=== PATIENT | male | born 1960 | race Caucasian/White ===

== ENCOUNTER 2018-06-29 13:22 | Emergency (ER) | payer OTHER ==
[2018-06-29 13:30] VITALS: BMI 34.7
[2018-06-29 14:40] LABS: BASO % 0.4 % (0-2.0); EOS % 2.2 % (0-4.5); LYMPH % 11.9 % (8-40); MCH 32.2 pg (25.7-33.7); MCHC 35.1 g/dl (32.0-35.9); MEAN CELL VOLUME 91.9 fl (80-96); MEAN PLT VOLUME 7.2 fl (7.5-11.1); MONO % 8.5 % (3.8-10.2); PLATELET COUNT 239 K/MM3 (134-434); RBC 4.35 M/mm3 (4.00-5.60); RDW 13.8 % (11.9-15.9); WHITE BLOOD COUNT 10.4 K/mm3 (4.0-10.0)
[2018-06-29 14:42] LABS: URINE APPEARANCE CLEAR; URINE BILIRUBIN NEGATIVE (<2.0 mg/dL); URINE COLOR LTYELLOW; URINE GLUCOSE (UA) NEGATIVE (NEGATIVE); URINE KETONE NEGATIVE (NEGATIVE); URINE LEUK ESTERASE NEGATIVE (NEGATIVE); URINE NITRITE NEGATIVE (NEGATIVE); URINE PROTEIN NEGATIVE (NEGATIVE); URINE UROBILINOGEN NEGATIVE mg/dL (0.2-1.0)
[2018-06-29 15:04] LABS: ALK PHOS 117 U/L (45-117); ANION GAP 7 MMOL/L (8-16); BILIRUBIN,TOTAL 0.5 mg/dL (0.2-1); BLOOD UREA NITROGEN 12 mg/dL (7-18); CALCIUM 8.4 mg/dL (8.5-10.1); CHLORIDE 106 mmol/L (98-107); CO2 24 mmol/L (21-32); CREATININE 0.8 mg/dL (0.55-1.3); GLUCOSE,RANDOM 101 mg/dL (74-106); SGOT/AST 10 U/L (15-37); SGPT/ALT 29 U/L (13-61); SODIUM 137 mmol/L (136-145); TOT PROT 7.2 g/dl (6.4-8.2)
--- NOTE | 2018-06-29 15:12 | PDOC ---
History of Present Illness - General Chief Complaint: Pain, Acute Stated Complaint: ABDOMINAL PAIN Time Seen by Provider: 06/29/18 13:42 History Source: Patient Exam Limitations: No Limitations - History of Present Illness Travel History: No Initial Comments: 06/29/18 15:02 57-year-old male presents to ED with worsening lower abdominal pressure and cramping since early this week. Patient states went to his primary care doctor had his urine checked which was negative and was prescribed Flomax for likely prostate etiology. patient states has had an elevated PSA in the past but was currently on no medication or followed by a urologist. Patient states has had no fever, chills, headache, abdominal distention, hematuria, or back pain. 06/29/18 15:04 Timing/Duration: reports: getting worse Quality: reports: mild, fullness, sharpness Abdominal Pain Onset Location: reports: suprapubic (mid) Pain Radiation: reports: no radiation Aggravating Factors: improves with: None Alleviating Factors: improves with: None Past History - Travel Traveled outside of the country in the last 30 days: No - Past Medical History Allergies/Adverse Reactions: Allergies Allergy/AdvReac Type Severity Reaction Status Date / Time No Known Allergies Allergy Verified 06/29/18 13:25 Home Medications: Ambulatory Orders Amlodipine Besylate/Benazepril [Lotrel 5-10 mg Capsule] 1 each PO DAILY Multivitamins [Multivit ([facility] Formulary)] 1 tab PO DAILY 12/17/14 Cholecalciferol (Vitamin D3) [Vitamin D3 -] 2,000 unit PO DAILY 06/29/18 Dasatinib [Sprycel] 100 mg PO ASDIR 06/29/18 Tamsulosin HCl [Flomax] 0.4 mg PO DAILY 06/29/18 Anemia: No Asthma: No Cancer: Yes (CML) Cardiac Disorders: No CVA: No COPD: Yes (SLEEP APNEA) CHF: No Dementia: No GI Disorders: (COLON POLYPS) Disorders: Yes (enlarged prostate) HTN: Yes Seizures: No Thyroid Disease: No - Surgical History Appendectomy: Yes Cardiac Surgery: No Cholecystectomy: No Lung Surgery: No - Immunization History Immunization Up to Date: Yes - Suicide/Smoking/Psychosocial Hx Smoking History: Unknown if ever smoked Have you smoked in the past 12 months: Yes Number of Cigarettes Smoked Daily: 20 'Breaking Loose' booklet given: 12/18/14 Hx Alcohol Use: No Drug/Substance Use Hx: No Substance Use Type: None Hx Substance Use Treatment: No Patient Lives Alone: No Lives with/in: spouse/SO Review of Systems - Review of Systems Able to Perform ROS?: Yes Constitutional: No: Symptoms Reported HEENTM: No: Symptoms Reported Respiratory: No: Symptoms reported Cardiac (ROS): No: Symptoms Reported ABD/GI: Yes: Abdominal cramping : Yes: Frequency, Urgency. No: Discharge, Incontinence, Testicular Swelling, Testicular Pain Musculoskeletal: No: Symptoms Reported Integumentary: No: Symptoms Reported Neurological: No: Symptoms reported Endocrine: No: Symptoms Reported Hematologic/Lymphatic: No: Symptoms Reported *Physical Exam - Vital Signs Last Vital Signs Temp Pulse Resp BP Pulse Ox 98.8 F 105 H 18 161/90 100 06/29/18 13:29 06/29/18 13:29 06/29/18 13:29 06/29/18 13:29 06/29/18 13:29 - Physical Exam General Appearance: Yes: Nourished, Appropriately Dressed. No: Apparent Distress HEENT: positive: EOMI Respiratory/Chest: positive: Lungs Clear, Normal Breath Sounds. negative: Respiratory Distress, Accessory Muscle Use Cardiovascular: positive: Regular Rhythm, Tachycardia. negative: Murmur Gastrointestinal/Abdominal: positive: Soft, Tenderness (mid suprapubic no distention) Male Genitalia: negative: discharge, testicular tenderness Extremity: positive: Normal Inspection Integumentary: positive: Normal Color, Warm, Moist Neurologic: positive: Motor Strength 5/5 (ambulatory) Moderate Sedation - Procedure Monitoring Vital Signs: Procedure Monitoring Vital Signs Temperature 98.8 F 06/29/18 13:29 Pulse Rate 105 H 06/29/18 13:29 Respiratory Rate 18 06/29/18 13:29 Blood Pressure 161/90 06/29/18 13:29 O2 Sat by Pulse Oximetry (%) 100 06/29/18 13:29 ED Treatment Course - LABORATORY CBC & Chemistry Diagram: 06/29/18 14:28 06/29/18 14:28 - ADDITIONAL ORDERS Additional order review: Laboratory Results 06/29/18 14:28 Urine Color Ltyellow Urine Appearance Clear Urine pH 7.0 Ur Specific [place] 1.008 L Urine Protein Negative Urine Glucose (UA) Negative Urine Ketones Negative Urine Blood 1+ H Urine Nitrite Negative Urine Bilirubin Negative Urine Urobilinogen Negative Ur Leukocyte Esterase Negative Urine WBC (Auto) <1 Urine RBC (Auto) <1 06/29/18 14:28 RBC 4.35 MCV 91.9 MCHC 35.1 RDW 13.8 MPV 7.2 L Neutrophils % 77.0 Lymphocytes % 11.9 Monocytes % 8.5 Eosinophils % 2.2 Basophils % 0.4 - RADIOLOGY Radiology Studies Ordered: Category Date Time Status PELVIC / BLADDER US [US] Stat Ultrasound 06/29/18 13:52 Ordered Medical Decision Making - Medical Decision Making 06/29/18 15:14 Chief complaint: Urinary frequency and urgency with pressure. Patient placed on Flomax yesterday by his primary care doctor with no relief of symptoms. Exam patient was superpubic tenderness I Plan: CBC, comp, urinalysis urine culture and pelvic ultrasound ordered 06/29/18 15:15 Laboratory Tests 06/29/18 06/29/18 14:28 14:28 WBC 10.4 H Hgb 14.0 Hct 40.0 Plt Count 239 MPV 7.2 L Neutrophils % 77.0 Ur Specific [place] 1.008 L Urine Blood 1+ H Urine Bilirubin Negative Urine Urobilinogen Negative Ur Leukocyte Esterase Negative Urine WBC (Auto) <1 Urine RBC (Auto) <1 06/29/18 15:51 Ultrasound shows incomplete emptying of the bladder with moderate postvoid residual 69 mL. The prostate gland is markedly enlarged with a total prostate volume of 115.2 mL was calculated. Patient will be given referral to urologist and told to continue taking his Flomax. Laboratory Tests 06/29/18 14:28 Sodium 137 Potassium 4.0 Chloride 106 Carbon Dioxide 24 Anion Gap 7 L BUN 12 Creatinine 0.8 Calcium 8.4 L Total Bilirubin 0.5 AST 10 L ALT 29 Alkaline Phosphatase 117 Total Protein 7.2 Albumin 4.0 *DC/Admit/Observation/Transfer Diagnosis at time of Disposition: BPH (benign prostatic hyperplasia) - Discharge Dispostion Disposition: HOME Condition at time of disposition: Good - Referrals Referrals: Jordan Curry MD [Primary Care Provider] - Allen Flores MD [Staff Physician] - - Patient Instructions Printed Discharge Instructions: DI for Benign Prostatic Hyperplasia Additional Instructions: At this time your ultrasound shows an enlarged prostate and I recommend to continue taking your Flomax. Please also follow up with referred urologist in drink plenty of fluids to avoid an urinary tract infection. - Post Discharge Activity
[2018-06-29 16:34] VITALS: BP 145/85; PULSE 96; TEMP 98.6
== END 2018-06-29 16:34 | disposition home or self-care (01) ==
LOC: JER 13:22
DX: N40.1 Benign prostatic hyperplasia with lower urinary tract symptoms (principal); R39.14 Feeling of incomplete bladder emptying; I10 Essential (primary) hypertension; Z85.6 Personal history of leukemia; Z86.010 Personal history of colon polyps; G47.39 Other sleep apnea
CPT/HCPCS: 36415; 76856-TC; 80053; 81003; 81015; 85025; 87086; 99282-25

== ENCOUNTER 2021-08-21 04:29 | Day surgery (SDC) | payer OTHER ==
[2021-08-19 11:29] VITALS: BMI 33.7
[2021-08-21 09:59] VITALS: TEMP 97.2
[2021-08-21 10:46] VITALS: BP 132/65; PULSE 62
== END 2021-08-21 11:01 | disposition home or self-care (01) ==
LOC: JASU-ENDO 04:29
PROVIDERS: ATTEND Internal Medicine Gastroenterology
PROC: 0DBL8ZX Excision of Transverse Colon, Via Natural or Artificial Opening Endoscopic, Diagnostic (ICD-10-PCS; 2021-08-21)
PROC: 0DBN8ZX Excision of Sigmoid Colon, Via Natural or Artificial Opening Endoscopic, Diagnostic (ICD-10-PCS; 2021-08-21)
PROC: 0DBK8ZX Excision of Ascending Colon, Via Natural or Artificial Opening Endoscopic, Diagnostic (ICD-10-PCS; principal; 2021-08-21 10:00)
DX: Z12.11 Encounter for screening for malignant neoplasm of colon (principal); D12.2 Benign neoplasm of ascending colon; D12.5 Benign neoplasm of sigmoid colon; D12.3 Benign neoplasm of transverse colon; K57.30 Diverticulosis of large intestine without perforation or abscess without bleeding; Z86.010 Personal history of colon polyps
CPT/HCPCS: 88305-TC

== ENCOUNTER 2024-04-02 18:39 | Inpatient (IN) | payer OTHER ==
[2024-04-02 21:43] LABS: BASO % 0.7 % (0-2.0); EOS % 3.1 % (0-4.5); HEMATOCRIT 46.6 % (35.4-49); HEMOGLOBIN 15.6 GM/dL (11.7-16.9); LYMPH % 14.6 % (8-40); MCH 28.8 pg (25.7-33.7); MCHC 33.5 g/dl (32.0-35.9); MEAN PLT VOLUME 7.5 fl (7.5-11.1); MONO % 6.6 % (3.8-10.2); PLATELET COUNT 220 10^3/uL (134-434); RBC 5.42 M/mm3 (4.00-5.60); RDW 14.6 % (11.9-15.9); WHITE BLOOD COUNT 8.8 K/mm3 (4.0-10.0)
[2024-04-02 21:50] LABS: INR 1.17 (0.83-1.09); PROTHROMBIN TIME (PATIENT) 13.2 SEC (9.7-13.0)
[2024-04-02 21:53] LABS: ACTIVATED PTT 38.7 SECONDS (25.2-36.5)
[2024-04-02 21:58] LABS: ALBUMIN 3.8 g/dl (3.4-5.0); BLOOD UREA NITROGEN 15.8 mg/dL (7-18)
[2024-04-02 22:01] LABS: CREATININE 0.8 mg/dL (0.55-1.3)
[2024-04-02 22:03] LABS: BILIRUBIN,TOTAL 0.5 mg/dL (0.2-1); TOT PROT 7.1 g/dl (6.4-8.2)
[2024-04-03] MEDS ORDERED: DOCUSATE SODIUM 100 MG CAPSULE (FP) PO PRN (04:56)
[2024-04-03 05:54] LABS: BASO % 0.6 % (0-2.0); EOS % 2.4 % (0-4.5); HEMATOCRIT 46.8 % (35.4-49); HEMOGLOBIN 15.5 GM/dL (11.7-16.9); LYMPH % 14.9 % (8-40); MCH 28.8 pg (25.7-33.7); MCHC 33.1 g/dl (32.0-35.9); MEAN CELL VOLUME 86.9 fl (80-96); MEAN PLT VOLUME 7.6 fl (7.5-11.1); MONO % 8.4 % (3.8-10.2); NEUT % 73.7 % (42.8-82.8); PLATELET COUNT 201 10^3/uL (134-434); RBC 5.39 M/mm3 (4.00-5.60); RDW 14.7 % (11.9-15.9); WHITE BLOOD COUNT 8.8 K/mm3 (4.0-10.0)
[2024-04-03 06:19] LABS: POTASSIUM 3.5 mmol/L (3.5-5.1)
[2024-04-03 06:25] LABS: BLOOD UREA NITROGEN 12.8 mg/dL (7-18); CALCIUM 8.6 mg/dL (8.5-10.1)
[2024-04-03 06:29] LABS: CREATININE 0.6 mg/dL (0.55-1.3)
[2024-04-03] MEDS ORDERED: NICOTINE POLACRILEX 4 MG GUM BUC PRN (08:22)
[2024-04-03] MEDS ORDERED: LEVOTHYROXINE NA 75 MCG TABLET (FP) ONE (08:23)
[2024-04-03] MEDS ORDERED: TAMSULOSIN HCL 0.4 MG CAP ONE (08:23)
[2024-04-03] MEDS: LEVOTHYROXINE NA 75 MCG TABLET (FP) PO SCH (08:37)
[2024-04-03] MEDS: TAMSULOSIN HCL 0.4 MG CAP PO SCH ×2 (08:38→21:10)
[2024-04-03] MEDS: amLODIPine BESYLATE 10 MG TABLET (FP) PO SCH (10:35)
[2024-04-03] MEDS ORDERED: HEPARIN NA (PORCINE) 5,000 UNITS/ML 1ML VIAL IVPUSH PRN (10:40)
[2024-04-03] MEDS: HEPARIN - 25,000 UNIT in SODIUM CHLORIDE 495 ML IV SCH (16:45)
[2024-04-03] MEDS: ATORVASTATIN CA 10 MG TABLET (FP) PO SCH (21:10)
[2024-04-03] MEDS: NILOTINIB 150 MG PO SCH (23:20)
[2024-04-03] MEDS: HEPARIN NA (PORCINE) 5,000 UNITS/ML 1ML VIAL IVPUSH PRN (23:23)
[2024-04-03] MEDS: ACETAMINOPHEN 500 MG TABLET (FP) PO PRN (23:25)
[2024-04-04] MEDS: traMADol HCL 50 MG TABLET PO ONE ×2 (04:00→20:43)
[2024-04-04] MEDS: NILOTINIB 150 MG PO SCH (16:55)
[2024-04-04] MEDS: ACETAMINOPHEN 1000 MG/100 ML BAG IVPB ONE (23:26)
[2024-04-05 08:59] LABS: HEMATOCRIT 45.1 % (35.4-49); HEMOGLOBIN 15.2 GM/dL (11.7-16.9); MCHC 33.7 g/dl (32.0-35.9); PLATELET COUNT 205 10^3/uL (134-434); RBC 5.24 M/mm3 (4.00-5.60); RDW 14.6 % (11.9-15.9); WHITE BLOOD COUNT 6.1 K/mm3 (4.0-10.0)
[2024-04-05] MEDS ORDERED: LIDOCAINE HCL 1%, 10 MG/ML (20ML VIAL) ONE (10:17)
[2024-04-05] MEDS ORDERED: MIDAZOLAM HCL 2 MG/2 ML SINGLE DOSE VIAL ONE (10:21)
[2024-04-05] MEDS ORDERED: ceFAZolin SODIUM 1 GM VIAL ONE (10:39)
[2024-04-05] MEDS: LIDOCAINE HCL 1%, 10 MG/ML (50 mL VIAL) INF ONE (10:49)
[2024-04-05] MEDS ORDERED: ONDANSETRON 4 MG/2 ML VIAL IVPUSH PRN ×2 (10:53→12:12)
[2024-04-05] MEDS ORDERED: PROPOFOL 80 ML ONE (11:24)
[2024-04-05] MEDS ORDERED: PROTAMINE SULFATE 50 MG/5 ML VIAL ONE ×2 (11:35)
[2024-04-05] MEDS ORDERED: DOCUSATE SODIUM 100 MG CAPSULE (FP) PO PRN (12:12)
[2024-04-05] MEDS ORDERED: ACETAMINOPHEN 500 MG TABLET (FP) PO PRN (12:12)
[2024-04-05] MEDS ORDERED: NICOTINE POLACRILEX 4 MG GUM BUC PRN (12:12)
[2024-04-05] MEDS ORDERED: oxyCODONE HCL 5 MG TABLET PO PRN (12:12)
[2024-04-05] MEDS ORDERED: ASPIRIN 81 MG CHEWABLE TABLETS ONE (12:38)
[2024-04-05] MEDS: ASPIRIN 81 MG CHEWABLE TABLETS PO SCH (12:44)
[2024-04-05 13:43] VITALS: RESP 18
[2024-04-05 14:31] VITALS: PULSE 62
[2024-04-05 14:34] VITALS: TEMP 97.1
[2024-04-05 16:47] VITALS: BP 143/87
[2024-04-05] MEDS ORDERED: ATORVASTATIN CA 10 MG TABLET (FP) PO SCH (22:00)
[2024-04-05] MEDS ORDERED: TAMSULOSIN HCL 0.4 MG CAP PO SCH (22:00)
[2024-04-05] MEDS ORDERED: APIXABAN 5 MG TABLET PO SCH (22:00)
[2024-04-06] MEDS ORDERED: LEVOTHYROXINE NA 75 MCG TABLET (FP) PO SCH (07:00)
[2024-04-06] MEDS ORDERED: ASPIRIN COATED 81 MG TABLET.EC PO SCH (10:00)
[2024-04-06] MEDS ORDERED: amLODIPine BESYLATE 10 MG TABLET (FP) PO SCH (10:00)
== END 2024-04-05 16:40 | disposition home or self-care (01) | DRG 254 ==
LOC: JER 18:39 → JERBED 04-03 04:00 → J4W 04-03 08:44 → OBSVTOIN 04-03 13:12 → J4W 04-04 17:31
PROVIDERS: ADMIT Internal Medicine; ATTEND Family Medicine
PROC: B41FZZZ Fluoroscopy of Right Lower Extremity Arteries (ICD-10-PCS; 2024-04-05)
PROC: X2K New Technology, Cardiovascular System, Bypass (ICD-10-PCS; principal; 2024-04-05 10:45)
DX: I75.021 Atheroembolism of right lower extremity (principal); I77.1 Stricture of artery; M54.30 Sciatica, unspecified side; I73.89 Other specified peripheral vascular diseases; I10 Essential (primary) hypertension; E78.5 Hyperlipidemia, unspecified; N40.0 Benign prostatic hyperplasia without lower urinary tract symptoms; G47.33 Obstructive sleep apnea (adult) (pediatric); F17.210 Nicotine dependence, cigarettes, uncomplicated; I70.201 Unspecified atherosclerosis of native arteries of extremities, right leg; E11.42 Type 2 diabetes mellitus with diabetic polyneuropathy
CPT/HCPCS: 36415; 71045-TC-FY; 75635-TC; 76000-TC-FY; 80048; 80053; 80061; 83036; 83605; 84443; 85025; 85027; 85610; 85730; 86850; 86900; 86901; 93005; 93010; 94760; 99285-25; C1760; C1874; G0378; J0131; J1644; Q9967

== ENCOUNTER 2024-08-30 06:20 | Day surgery (SDC) | payer OTHER ==
[2024-08-27 10:46] VITALS: BMI 31.4
[2024-08-30] MEDS ORDERED: LIDOCAINE HCL 1%, 10 MG/ML (20ML VIAL) ONE (07:23)
[2024-08-30] MEDS ORDERED: HEPARIN NA (PORCINE) 5,000 UNITS/ML 1ML VIAL ONE ×2 (07:23→09:17)
[2024-08-30] MEDS ORDERED: PAPAVERINE HCL 30 MG/1 ML 10 ML VIAL NR ONE (07:23)
[2024-08-30] MEDS ORDERED: PROPOFOL 20 ML ONE ×3 (07:49→09:12)
[2024-08-30] MEDS ORDERED: MIDAZOLAM HCL 2 MG/2 ML SINGLE DOSE VIAL ONE (07:49)
[2024-08-30] MEDS ORDERED: ceFAZolin SODIUM 1 GM VIAL ONE (07:51)
[2024-08-30] MEDS: ceFAZolin 2 GRAM PREMIX BAG IVPB ONE (08:06)
[2024-08-30] MEDS: LIDOCAINE HCL 1%, 10 MG/ML (20ML VIAL) NR ONE ×3 (08:19)
[2024-08-30] MEDS ORDERED: ONDANSETRON 4 MG/2 ML VIAL IVPUSH PRN (09:50)
[2024-08-30] MEDS ORDERED: oxyCODONE HCL 5 MG TABLET PO PRN ×2 (09:50→09:54)
[2024-08-30] MEDS ORDERED: ACETAMINOPHEN 1000 MG/100 ML BAG IVPB PRN (09:51)
[2024-08-30] MEDS ORDERED: LACTATED RINGERS SOLUTION 1,000 ML IV SCH (10:00)
[2024-08-30 11:40] VITALS: BP 147/86; PULSE 54; RESP 20; TEMP 97.3
== END 2024-08-30 11:48 | disposition home or self-care (01) ==
LOC: JASU-SURG 06:20
PROVIDERS: ATTEND Surgery
PROC: X2K New Technology, Cardiovascular System, Bypass (ICD-10-PCS; 2024-08-30)
PROC: 047L34Z Dilation of Left Femoral Artery with Drug-eluting Intraluminal Device, Percutaneous Approach (ICD-10-PCS; principal; 2024-08-30 08:00)
DX: I70.212 Atherosclerosis of native arteries of extremities with intermittent claudication, left leg (principal); I10 Essential (primary) hypertension; E78.5 Hyperlipidemia, unspecified; N40.0 Benign prostatic hyperplasia without lower urinary tract symptoms; C92.10 Chronic myeloid leukemia, BCR/ABL-positive, not having achieved remission
CPT/HCPCS: 37227; C1874; 76000-TC-FY; 94760; C1760; C1769; C1894; J1644